=== PATIENT | female | born 1935 | race Caucasian/White ===

== ENCOUNTER → 2019-08-09 08:14 | Outpatient (CLI) | payer MEDICARE, OTHER, SELFPAY ==
[2019-08-09 09:38] LABS: Add Manual Diff / Slide Review NO; Basophils Absolute Auto 100 /uL (0-100); Basophils Percent Auto 1.4 % (0-2); Eosinophils Absolute Auto 100 /uL (0-450); Hematocrit 39.3 % (36-46); Hemoglobin 13.3 g/dL (12.0-16.0); Lymphocytes Absolute Auto 1800 /uL (1100-4500); Lymphocytes Percent Auto 33.8 % (25-40); Mean Corpuscular HGB Conc 33.9 % (30-36); Mean Corpuscular Hemoglobin 31.5 PG (26-34); Monocytes Absolute Auto 400 /uL (0-900); Monocytes Percent Auto 8.2 % (3-14); Neutrophils Absolute Auto 3000 /uL (1500-7000); Neutrophils Percent Auto 55.6 % (50-75); Platelet Count 215 X10^3/uL (150-400); Red Blood Cell Count 4.23 X10^6/uL (4.0-5.2); Red Cell Distribution Width 13.2 % (11.6-14.8); White Blood Cell Count 5.4 X10^3/uL (4.5-11.0)
[2019-08-09 10:08] LABS: Carbon Dioxide 30 mmol/L (22-32); Chloride 100 mmol/L (98-107); HEMOLYSIS < 15 (0-50); Potassium 4.2 mmol/L (3.4-5.1); Sodium 138 mmol/L (137-145)
== END ==
PROVIDERS: PCP Family Medicine; Visit Provider Orthopaedic Surgery
DX: Z01.818 Encounter for other preprocedural examination (principal); Z01.812 Encounter for preprocedural laboratory examination
CPT/HCPCS: 36415; 80051; 85025; 93005

== ENCOUNTER 2019-09-01 14:39 | Observation (INO) | payer MEDICARE, OTHER, SELFPAY ==
[2019-08-22 08:56] VITALS: BMI 21.1
[2019-08-31] VITALS (14 sets, daily range): BP systolic 107–157; BP diastolic 49–80; PULSE 66–81; RESP 10–18; TEMP 36.2–37; O2SAT 92–100; BMI 21.1
--- NOTE | 2019-08-31 06:51 | DI.RAD.S_ITS ---
PROCEDURE: XR KNEE RT 1TO2V INDICATIONS: RIGHT TOTAL KNEE TECHNIQUE: 2 view(s) of the knee acquired. COMPARISON: None. FINDINGS: Bones: Patient is status post knee joint arthroplasty. Hardware components are in expected positions. Visualized bony structures are intact. Soft tissues: Overlying postoperative changes are noted. IMPRESSION: Status post right total knee arthroplasty without hardware complication. Normal postoperative alignment. Dictated by: Pako Dorado M.D. on 08/31/2019 at 10:43 Approved by: Pako Dorado M.D. on 08/31/2019 at 10:43
[2019-08-31] MEDS: CELECOXIB 200 MG CAPSULE PO (07:05)
[2019-08-31] MEDS: ACETAMINOPHEN 325 MG TABLET 975 MG PO ×3 (07:05→21:02)
[2019-08-31] MEDS: PREGABALIN 75 MG CAPSULE PO (07:05)
[2019-08-31] MEDS: LACTATED RINGERS 1,000 ML 42 ML IV ×2 (07:06→09:04)
--- NOTE | 2019-08-31 07:23 | PM.PREOP ---
Pre-operative Note Interval Note History & Physical reviewed/Exam performed by Physician: Yes Changes to H&P: No
--- NOTE | 2019-08-31 07:23 | PM.OP.1 ---
Operative Date/Time/Diagnoses Date of procedure: 08/31/19 Time of procedure: 10:03 Pre-op diagnosis: Right knee osteoarthritis Post-op diagnosis: same Procedure & Clinicians Procedure: Right total knee arthroplasty Same procedure as scheduled: Yes Indications: The patient presents today for total knee arthroplasty after failure of conservative treatment. The nature of the procedure including the risks and benefits, alternatives, postoperative course and expected outcome were discussed and all questions answered. Consent was obtained. Operative site confirmed and marked. Surgeon: Arun Zuleta Crab Picker: Sean Delgado Anesthesia Type: General, Spinal and Local Operative Notes Findings: Severe osteoarthritis with varus alignment. There is a large medial meniscal cyst which was excised. There was also some scarring of the skin medially to the bone from a previous attempt at excising the meniscal cyst. This scarred area was completely excised with primary closure of the skin. Closure Type: primary Specimen(s): none sent Prosthetic devices, grafts, tissues, transplants, or devices: [employer] Mckenzie BCS: 4 femoral component, 3 tibial component, 9 mm BCS polyethylene tray and 32 x 9 mm round patella Applied: implant(s) Estimated Blood Loss (mL): 10 Blood products transfused: none Tourniquet time (min): 68 Procedure in detail: The patient was taken to the operative suite and placed under general and spinal anesthesia. The patient was given prophylactic antibiotics prior to surgery. The patient was also given tranexamic acid, 1 g, just prior to surgery for postoperative hemostasis. The lateral knee was prepped and the joint injected with 20 mL of 1% Lidocaine with epinephrine. The knee was then prepped and draped in usual sterile fashion. The leg was exsanguinated with an Esmarch dressing and the tourniquet raised to 250 torr. A 15 cm anterior incision was made. Next a medial trivector arthrotomy was made. The extensor mechanism was marked to ensure accurate repair. Initial exposing dissection was carried out medially and laterally. There was a large medial meniscal cyst which was debrided. There is also some scarring of the skin to the medial tibia from a previous attempt at removing the cyst. This skin was completely excised to allow primary closure of healthy skin. The knee was then extended and the patellar thickness was measured and a cut made removing approximately 9 mm of bone. The patella was then sized and drilled. Some excess lateral bone was excised and the patellofemoral ligament released. The knee was then flexed and the intramedullary femoral guide yas placed. The distal femoral cut was made in 6 ? of valgus at the +2 position. The femoral size was measured and the appropriate cutting block was then placed and the anterior, posterior and chamfer cuts made. The intramedullary tibial alignment yas was then placed. The guide was set to remove approximately 10 mm from the less affected lateral side. The proximal tibial cut was then made with an oscillating saw. All meniscus and bony debris was then removed. Posterior femoral osteophytes removed with a curved osteotome. Flexion extension gaps were checked. No specific balancing was required other than routine exposure and removal of osteophytes. The soft tissues were then injected with a combination of 20 mL of half percent Marcaine with epinephrine and 20 mL of Exparel. The trial components were then placed. The knee went into full extension and flexion beyond 120?. There was excellent medial-lateral balance throughout motion. Patellar tracking was excellent. The trial components were removed and the knee was cleansed with Pulsavac irrigation and dried. The final components were cemented with high viscosity vacuum mixed bone cement with antibiotics. The joint was filled with a dilute Betadine solution. The knee was held in extension and the patellar clamped until the cement was fully cured. The knee was then irrigated. The extensor mechanism was closed with 5 interrupted #1 Vicryl sutures and a running Quill suture at 90 degrees of flexion. The joint was then injected with a combination of 1 g of tranexamic acid and 20 mL of quarter percent Marcaine with epinephrine. The subcutaneous tissue was closed with 2 0 Vicryl. The skin was closed with angeles and surgical adhesive. An Aquacel dressing and Valeriano wrap were then applied. The patient tolerated the procedure well and was returned to recovery room in good condition. Complications: none Post-operative Condition: stable Disposition: PACU Plan for aftercare: [facility] protocol for total knee arthroplasty.
[2019-08-31] MEDS: CEFAZOLIN 2 GM/100 ML FROZ.PIGGY IV ×2 (08:15→16:01)
[2019-08-31] MEDS: TRANEXAMIC ACID 1,000 MG VIAL 1000 MG INJ (08:20)
[2019-08-31] MEDS: LIDOCAINE 1% W/EPI 20 ML INJ (08:20)
--- NOTE | 2019-08-31 08:45 | SUR.OPER ---
Supine on padded OR bed. Pillow under head, arms secured on padded armboards <90 degree abduction. Safety belt across torso. Non-operative leg secured with tape over blanket over lower leg. Operative leg secured in DeMayo/Miguel positioner. Foam padded brace at thigh of operative leg.
[2019-08-31] MEDS: BUPIVACAINE 0.25% W/ EPI (PF) 40 ML, BUPIVACAINE LIPOSOME 266 MG, SODIUM CHLORIDE 0.9% ... INJ (08:52)
[2019-08-31] MEDS: BUPIVACAINE 0.25% W/ EPI (PF) 20 ML, TRANEXAMIC ACID 1,000 MG, SODIUM CHLORIDE 0.9% 10 ML INJ (08:53)
[2019-08-31] MEDS: SODIUM CHLORIDE IRRIG SOLUTION 250 ML, POVIDONE-IODINE SPONGE STICKS 1 APPLIC IRR (08:54)
--- NOTE | 2019-08-31 10:17 | CM.IDA ---
Addendum entered by VIVIEN Doll 09/01/19 10:42: PT has cleared pt for return home today after cg training w/pt's family, and pt is eager to do so. DC expected today, home w/family and outpt PT, no barriers. CORA Original Note: Initial DCP Assessment Note: Pt is an 84 yo female, resident of [place]. Pt having surgery today, toal rt knee w/Dr Zuleta. PCP: Mindi Flynn Payer: Medicare/[employer] Reviewed chart, pt off floor in surgery today. Will plan to complete assessment POD#1, PT eval pending. VIVIEN Doll Discharge Planning/Care Management CM Discharge Assessment Start: 08/31/19 10:15 Freq: Status: Active Protocol: Document 08/31/19 10:15 CORA (Rec: 08/31/19 10:16 CORA [id number]) Discharge Planning Assessment Assigned Packaging Clerk VIVIEN Scruggs DPOA/Assigned Designee Name Abdoul (brother) Contact Information [phone] Advance Directives? Yes Advance Directives on File No History Provided By Medical Record Prior Living Arrangements House Household Members none Type of transporation used prior to Drives own vehicle admit Independent with ADL's Yes Is patient alert and oriented? Yes Comment 08/27/18. Brother will stay w/pt to assist w/care Discharge Plan Home Transportation Arrangement Family Review Status In Process
[2019-08-31] MEDS: LACTATED RINGERS 1,000 ML 125 ML IV ×2 (11:05→19:59)
--- NOTE | 2019-08-31 12:35 | PC.NURSE ---
Patient resting in bed, transferred from PACU at 1052. Patient is A/Ox4, denies pain at this time, RLE dsg is CDI, pulses are equal and regular in bilateral LE. SCD's on, patient taking sips of water. Request bedpan, urine output 50 ml, tolerated well. Patient's brother at bedside. Call light in reach.
--- NOTE | 2019-08-31 14:37 | PT.IIE ---
Current Diagnoses Unilateral primary osteoarthritis, right knee (08/31/19) Surgery Performed Operation Date: 08/31/19 08:30 Actual Procedures p Total Knee Arthroplasty(Right) - Arun Zuleta MD Surgical History (Last Updated 08/22/19 @ 09:21 by Antonette Simpson, RN) H/O: hysterectomy (Acute) History of incision and drainage (Acute) Hx of appendectomy (Acute) Hx of arthroscopy of left knee (Acute ~2017) Hx of bilateral cataract extraction (Acute) Hx of oophorectomy (Acute) Medical History (Last Updated 08/22/19 @ 09:21 by Antonette Simpson, JANESSA) Hearing impaired (Acute) Numbness and tingling in both hands (Acute) RBBB (right bundle branch block) (Acute) RLS (restless legs syndrome) (Acute) Skin cancer (Acute) Thinning of skin (Acute) Physical Therapy Inpatient Evaluation/Re-Eval M1 PT/OT-IP Prior Functional Status Start: 08/31/19 15:54 Freq: NEEDED Status: Active Protocol: Document 08/31/19 14:37 AB (Rec: 08/31/19 16:05 [id number]) Medical Review Prior Functional Status Medical History Reviewed Yes Communication able to make needs known Mobility and Gait pt stated that she is independent with all mobilities and ambulation without AD Social History Household Members none Living Arrangements House Number of Floors (Floors) Two Floors Number of Stairs To Enter/Railing? 1 step to enter 13 steps with R rail ascending to 2nd floor bedroom; pt stated that she can sleep on her recliner on the main level of the house until she is able to do her 13 steps Home Environment Standard Height Toilet,High Toilet,Tub/Shower Home Equipment Front Wheel Walker,Raised Toilet Seat Without Armrests, Shower Seat without Backrest, Grab Bars In Shower Additional Social History Comment pt's brother plans to stay with pt until Nov 12 to assist her M2 PT-IP Current Condition Start: 08/31/19 15:54 Freq: NEEDED Status: Active Protocol: Document 08/31/19 14:37 AB (Rec: 08/31/19 16:05 AB [id number]) Physical Therapy Current Condition Current Condition Evaluation Date 08/31/19 Treatment Diagnosis s/p R TKA; difficulty in walking Onset Date 08/31/19 Weight Bearing Status Weight Bearing Status Weight Bear as Tolerated M3 PT-IP Subjective Start: 08/31/19 15:54 Freq: NEEDED Status: Active Protocol: Document 08/31/19 14:37 AB (Rec: 08/31/19 16:05 AB [id number]) Subjective Physical Therapy Visit Type Type Initial Evaluation Visit Start Time 14:37 Visit Stop Time 15:37 Total Visit Minutes 60 Number of PHYSICIST SOLID STATE Visits 0 Physical Therapy Visit Comments Patient Comments pt agreeable to do PT Therapy Pain Assessment Pain When Pain Assessed During Mobility Pain Present Pain Present Pain Reported Location right knee Scale Used c/o soreness Pain Management Techniques Apply Cold,Re-positioning M4 PT-IP Mobility and Gait Start: 08/31/19 15:54 Freq: NEEDED Status: Active Protocol: Document 08/31/19 14:37 AB (Rec: 08/31/19 16:05 AB [id number]) PT-Bed Mobility Assessment Supine to Sit Supine to Sit Standby Assistance Scooting Scooting to Edge of Bed Standby Assistance PT-Transfer Assessment Sit to and From Stand Sit to and from Stand Contact Guard Assistance Equipment Transfer Assistive Device Gait Belt,Front Wheeled Walker Orthotic/Prosthetic Devices or Brace: No Transfers Transfer Destination Bed,Chair,Bedside Commode Transfer Technique Stand Step Pivot Transfer Ability Level of Assist Contact Guard Assistance,1 Person Assistance,Use of Upper Extremities Comments Mobility Comments pt can be impulsive and requires cues for safety Gait Assessment Gait Gait Assistance Required: Contact Guard Assist Distance (Feet) 40 Able to Maintain Weight Bearing Status Yes During Gait Assistive Devices Assistive Device Gait Belt,Front Wheeled Walker Orthotic/Prosthetic Devices or Brace: No Gait Deviations General Gait Pattern Antalgic,Decreased Stride Length,Decreased Feet Clearance Factors Limiting Gait Function Factors Limiting Gait Function Decreased Activity Tolerance, Decreased Sensation,Decreased Strength,Difficulty Following Directions,Limited Range of Motion,Pain,Poor Balance,Poor Safety Awareness PT-Balance Assessment Sitting Balance and Reactions Static Sitting Balance Ability Good Dynamic Sitting Balance Ability Good Standing Balance and Reactions Static Standing Balance Ability Fair Dynamic Standing Balance Ability Fair Device Used FWW M5 PT-IP Objective Assessments Start: 08/31/19 15:54 Freq: NEEDED Status: Active Protocol: Document 08/31/19 14:37 AB (Rec: 08/31/19 16:05 AB [id number]) Orientation Orientation/Cognition Level of Alertness Alert Orientation Name,Age,Place,Situation Safety Awareness Decreased Safety Awareness Memory Description Short Term Impaired Gross Range of Motion Lower Extremity ROM Impairments R knee flexion: ~ 90 deg R knee extension: - 5 deg Strength Lower Extremity Strength Hip 4-/5 Knee 4-/5 Sensation Assessment Sensation Gross Sensation Right LE Impaired Light Touch Impaired Sensation Description Numbness Muscle Tone Muscle Tone WNL Yes M6 PT-IP Treatment Start: 08/31/19 15:54 Freq: NEEDED Status: Active Protocol: Document 08/31/19 14:37 AB (Rec: 08/31/19 16:05 [id number]) Physical Therapy Treatment Education Education Provided Precautions,Weight Bearing Status,Post-Op Packet,Safety M7 PT-IP Assessment and Plan Start: 08/31/19 15:54 Freq: NEEDED Status: Active Protocol: Document 08/31/19 14:37 AB (Rec: 08/31/19 16:05 [id number]) PT Summary Assessment and Plan Potential Rehabilitation Potential Good Status of Condition at Evaluation Stable Summary Impairments Pain,ROM,Strength,Balance, Coordination,Sensation, Cognition,Bed Mobility, Transfers,Gait,Activity Tolerance Assessment Summary pt requiring CGA with mobility . pt plans to go home and her brother will be assisting her . caregiver training ~ 10 am tomorrow wiht pt and pt's brother. pt also stated that she is signed up for outpt PT already but has not made an appointment yet. Goals Bed Mobility Goal Independent Transfer Goal Independent,Front Wheeled Walker Gait Goal Independent,Front Wheel Walker Gait Distance 250 Other Goals up/down 1 step using FWW SBA up/down 13 steps R rail ascending CGA Days to Meet Goals 5 Frequency of Treatment Frequency Of Treatment Twice a Day Treatment Plan Physical Therapy Treatment Plan Bed Mobility Training,Transfer Training,Gait Training, Therapeutic Exercise,Balance Retraining,Post Op Education, Discharge Planning,Hot or Cold Pack,Neuromuscular Re-ed, Coordination Retraining,Manual Therapy Other Recommendations and Next Treatment caregiver training 09/01/19 @ [facility] 10 am Recommendations To Nursing Amount of Assist Needed 1 Person Assist Discharge Recommendations PT Discharge Recommendations Home with Assistance, Outpatient PT
[2019-08-31] MEDS: OXYCODONE IR 5 MG TABLET 10 MG PO (18:17)
[2019-08-31] MEDS: ONDANSETRON 4 MG/2 ML INJ IV (21:02)
[2019-08-31] MEDS: ASPIRIN EC 81 MG TABLET PO (21:03)
[2019-08-31] MEDS: ZOLPIDEM 5 MG TABLET 2.5 MG PO (21:03)
[2019-09-01] VITALS: BP 120/56; PULSE 74; RESP 15; TEMP 36.3; O2SAT 96
[2019-09-01] MEDS: CEFAZOLIN 2 GM/100 ML FROZ.PIGGY IV (00:26)
--- NOTE | 2019-09-01 00:37 | PC.NURSE ---
Addendum entered by Pradip Perez R.N. 09/01/19 02:44: 0215: Assisted up to bedside commode, voided. Pt having pain in rt leg when back in bed. Medicated for pain with Oxycodone 10mg po. Original Note: Cancer Registry Manager Note: 0000: Resting in bed. Vital signs stable. IV in place in lt wrist, with LR infusing at 125cc/hr. Rt leg elevated on pillow. Dressing to rt knee cdi, with reese wrap intact over dressing. SCDs on.
[2019-09-01] MEDS: OXYCODONE IR 5 MG TABLET 10 MG PO ×2 (02:13→05:16)
[2019-09-01] MEDS: HYDROMORPHONE 0.5 MG INJ IV (03:34)
[2019-09-01] MEDS: LACTATED RINGERS 1,000 ML 125 ML IV (05:18)
[2019-09-01 05:24] VITALS: BP 138/58; PULSE 73; RESP 16; TEMP 36.1; O2SAT 94
[2019-09-01 07:29] LABS: Hematocrit 35.3 % (36-46); Hemoglobin 11.9 g/dL (12.0-16.0)
[2019-09-01 07:40] VITALS: BP 116/57; PULSE 70; RESP 16; TEMP 36.6; O2SAT 97
[2019-09-01] MEDS: HYDROCODONE/ACET 5/325 TABLET 2 TAB PO ×4 (07:55→20:20)
[2019-09-01] MEDS: ASPIRIN EC 81 MG TABLET PO ×2 (07:57→20:20)
[2019-09-01] MEDS: hydrOXYzine pamoate 25 MG CAPSULE PO ×4 (07:59→20:20)
--- NOTE | 2019-09-01 08:50 | PM.PNPO.1 ---
Subjective Subjective Date Patient Seen: 09/01/19 Time Patient Seen: 08:30 Interval history: Post op day 1 s/p right total knee arthroplasty with Dr. Zuleta. Overnight patient complains of poor pain control with oxycodone 10 and IV dilaudid 0.5. Pain 10/10 in right knee. Given norco and pain dropped to 8/10. Patient ambulating well with physical therapy. Voiding without difficulty or assistance. Complains of nausea, resolved with zofran. Asked nurse overnight to remove SCD's because compression causing her pain. Denies fever, chills, vomiting, chest pain, shortness of breath, calf pain. Exam Vital Signs (past 8 hours): - 09/01/19 05:24 Temperature 97.0 F L Pulse Rate 73 Respiratory Rate 16 Blood Pressure 138/58 L Pulse Oximetry 94 Oxygen Delivery Method Room Air Oxygen Flow Rate 0 Narrative Exam Narrative: 84 year old female is lying comfortably in bed, in no apparent distress. A&Ox3. Dressing is CDI. Patient able to actively plantar flex/dorsiflex. Dorsalis pedis 2+. Capillary refill 3 seconds b/l LE. Sensory function grossly intact to light touch in LE b/l. No SCD's in place. Objective Labs Result Diagrams: 09/01/19 07:08 Labs: Laboratory Results - last 24 hr 09/01/19 07:08 Hgb 11.9 L Hct 35.3 L Assessment & Plan Post-op Postoperative Procedures: Procedures Operation Date: 08/31/19 08:30 Actual Procedures Side Surgeon p Total Knee Arthroplasty Right Arun Zuleta MD Postoperative status: doing well and marginal pain control Postoperative plan narrative: Post op day 1 s/p right total knee arthroplasty with Dr. Zuleta, poor pain control Pain management - IV dilaudid for breakthrough pain, hydrocodone/acetaminophen q4hr Continue ambulation with physical therapy Discharge home likely in 24 hours pending pain management Time Spent With Patient Time with patient: less than 15 minutes Quality VTE Deep Vein Thrombosis/Pulmonary Embolism Present on Admission: No
[2019-09-01] MEDS: ONDANSETRON 4 MG/2 ML INJ IV (09:46)
--- NOTE | 2019-09-01 11:02 | PT.IPTN ---
Current Diagnoses Unilateral primary osteoarthritis, right knee (08/31/19) Surgery Performed Operation Date: 08/31/19 08:30 Actual Procedures p Total Knee Arthroplasty(Right) - Arun Zuleta MD Physical Therapy Treatment Note M2 PT-IP Current Condition Start: 08/31/19 15:54 Freq: NEEDED Status: Active Protocol: Document 08/31/19 14:37 AB (Rec: 08/31/19 16:05 AB [id number]) Physical Therapy Current Condition Current Condition Evaluation Date 08/31/19 Treatment Diagnosis s/p R TKA; difficulty in walking Onset Date 08/31/19 Weight Bearing Status Weight Bearing Status Weight Bear as Tolerated M3 PT-IP Subjective Start: 08/31/19 15:54 Freq: NEEDED Status: Active Protocol: Document 09/01/19 10:45 SP (Rec: 09/01/19 10:56 SP [id number]) Subjective Physical Therapy Visit Type Type Treatment Note Visit Start Time 10:15 Visit Stop Time 10:45 Total Visit Minutes 30 Number of PSYCHOLOGY INSTRUCTOR Visits 1 Physical Therapy Visit Comments Patient Comments pt agreeable to PT to complete caregiver training with transfers, gait, stair mgt but stated in 08/18 pain R knee, just received her pain meds and cold pack. Patient Goals Complete caregiver training and stairs. Therapy Pain Assessment Pain When Pain Assessed At Rest Pain Present Pain Present Pain Reported Location right knee Intensity 10 Pain Management Techniques Apply Cold,Re-positioning, Timing of Activity with Medications M4 PT-IP Mobility and Gait Start: 08/31/19 15:54 Freq: NEEDED Status: Active Protocol: Document 09/01/19 10:45 SP (Rec: 09/01/19 10:56 SP [id number]) PT-Bed Mobility Assessment Rolling Type of Rolling Roll to Left Level of Assist Standby Assistance Supine to Sit Supine to Sit Standby Assistance Sit to Supine Sit to Supine Standby Assistance Scooting Scooting to Edge of Bed Standby Assistance Scooting Up and Down in Bed Standby Assistance PT-Transfer Assessment Sit to and From Stand Sit to and from Stand Contact Guard Assistance Equipment Transfer Assistive Device Gait Belt,Front Wheeled Walker Orthotic/Prosthetic Devices or Brace: No Transfers Transfer Destination Bed Transfer Ability Level of Assist Contact Guard Assistance,1 Person Assistance,Use of Upper Extremities Comments Mobility Comments Pt can be impulsive, required cues for safety including hand placement to stand and sit. Gait Assessment Gait Gait Assistance Required: Contact Guard Assist Distance (Feet) 40 Able to Maintain Weight Bearing Status Yes During Gait Assistive Devices Assistive Device Gait Belt,Front Wheeled Walker Orthotic/Prosthetic Devices or Brace: No Gait Deviations General Gait Pattern Antalgic,Decreased Stride Length,Decreased Feet Clearance,Step-to Gait Factors Limiting Gait Function Factors Limiting Gait Function Decreased Activity Tolerance, Decreased Sensation,Decreased Strength,Difficulty Following Directions,Limited Range of Motion,Pain,Poor Balance,Poor Safety Awareness Stair Climbing Assessment Evaluation Level of Assist On Stairs Contact Guard Assistance Devices Stair Climbing Assistive Devices Right Railing Technique/Endurance Stair Climbing Direction Ascend and Descend Stair Climbing Technique Step to Step Number of Steps Climbed 12 Stair Climbing Set # Repetitions (reps) 1 Comments Stair Climbing Comments Pt education on patterning LLE leading ascending, RLE leading descending, occasional cues for R HR only with good balance. Cued brother for proper positioning (behind ascend/front descend) and contact with GB for safety. M5 PT-IP Objective Assessments Start: 08/31/19 15:54 Freq: NEEDED Status: Active Protocol: Document 08/31/19 14:37 AB (Rec: 08/31/19 16:05 AB [id number]) Orientation Orientation/Cognition Level of Alertness Alert Orientation Name,Age,Place,Situation Safety Awareness Decreased Safety Awareness Memory Description Short Term Impaired Gross Range of Motion Lower Extremity ROM Impairments R knee flexion: ~ 90 deg R knee extension: - 5 deg Strength Lower Extremity Strength Hip 4-/5 Knee 4-/5 Sensation Assessment Sensation Gross Sensation Right LE Impaired Light Touch Impaired Sensation Description Numbness Muscle Tone Muscle Tone WNL Yes M6 PT-IP Treatment Start: 08/31/19 15:54 Freq: NEEDED Status: Active Protocol: Document 09/01/19 10:45 SP (Rec: 09/01/19 10:56 SP [id number]) Physical Therapy Treatment Education Education Provided Precautions,Weight Bearing Status,Post-Op Packet,Safety M7 PT-IP Assessment and Plan Start: 08/31/19 15:54 Freq: NEEDED Status: Active Protocol: Document 09/01/19 10:57 SP (Rec: 09/01/19 11:02 SP [id number]) PT Summary Assessment and Plan Potential Rehabilitation Potential Good Status of Condition at Evaluation Stable Summary Impairments Pain,ROM,Strength,Balance, Coordination,Sensation, Cognition,Bed Mobility, Transfers,Gait,Activity Tolerance Assessment Summary pt requiring CGA with mobility . pt plans to go home and her brother will be assisting her . Caregiver training completed with pt and pt's brother including gait, transfers, stair mgt. Cued occasional cues for staying close and contact with stair mgt for safety, good demonstration, CGA. pt also stated that she is signed up for outpt PT already but has not made an appointment yet. Pt reapplied cold pack for pain control and educated importance for knee positioning neutral and not having knee bent resting all the time to allow full ROM . Pt call light left at side and bed rearmed. Nursing stated already had her meds recently but will keep assessing for assistance. Goals Bed Mobility Goal Independent Transfer Goal Independent,Front Wheeled Walker Gait Goal Independent,Front Wheel Walker Gait Distance 250 Other Goals up/down 1 step using FWW SBA up/down 13 steps R rail ascending CGA Days to Meet Goals 5 Frequency of Treatment Frequency Of Treatment Twice a Day Treatment Plan Physical Therapy Treatment Plan Bed Mobility Training,Transfer Training,Gait Training, Therapeutic Exercise,Balance Retraining,Post Op Education, Discharge Planning,Hot or Cold Pack,Neuromuscular Re-ed, Coordination Retraining,Manual Therapy Other Recommendations and Next Treatment caregiver training 09/01/19 @ [facility] 10 am Recommendations To Nursing Amount of Assist Needed 1 Person Assist Discharge Recommendations PT Discharge Recommendations Home with Assistance, Outpatient PT
[2019-09-01 11:40] VITALS: BP 142/72; PULSE 76; RESP 16; TEMP 37.6; O2SAT 95
--- NOTE | 2019-09-01 14:26 | PC.NURSE ---
Patient had difficulty this morning controlling pain. Discussed staying on top of PRN medications to manage breakthrough pain. Patient is receptive. Reports pain in right knee with movement. Patient is restless overall, trembling noted in LUE, patient reports this happens every once in a while. Patient rejects SCDs at this time. Educated on prevention of clots, patient understands and is willing to put them back on. Patient is currently up to the chair. Denies further needs at this time.
[2019-09-01 15:25] VITALS: BP 137/72; PULSE 78; RESP 18; TEMP 36.8; O2SAT 96
--- NOTE | 2019-09-01 16:55 | PT-IP ANOTE ---
PARA MACHINE OPERATOR went in x2 to see patient in afternoon, laying in bed and reported in 08/18 pain R knee still and has a ice pack to help, can I come back. She was up in the chair 3rd time eating dinner. Pt stated still having pain but the meds are starting to work but am comfortable in the chair. Pt and PARA MACHINE OPERATOR discussed ther ex can perform as HEP. Patient and brother (in room) felt comfortable with the transfers, stairs and did well walking to the bathroom little while ago. Pt asked if was being discharged tomorrow, feels is ready to go home.
[2019-09-01] MEDS: ZOLPIDEM 5 MG TABLET 2.5 MG PO (20:24)
[2019-09-02] MEDS: HYDROCODONE/ACET 5/325 TABLET 2 TAB PO ×2 (01:03→04:28)
[2019-09-02 01:17] VITALS: BP 135/64; PULSE 74; RESP 16; TEMP 36.6; O2SAT 95
[2019-09-02 04:33] VITALS: BP 150/77; PULSE 81; RESP 15; TEMP 36.9; O2SAT 98
[2019-09-02 08:15] VITALS: BP 133/64; PULSE 77; RESP 14; TEMP 36.6; O2SAT 96
[2019-09-02] MEDS: ESTROGENS, CONJUGATED 0.3 MG TABLET PO (08:53)
[2019-09-02] MEDS: ACETAMINOPHEN 325 MG TABLET 975 MG PO (08:53)
[2019-09-02] MEDS: DOCUSATE 100 MG CAPSULE PO (08:53)
[2019-09-02] MEDS: IBUPROFEN 400 MG TABLET PO ×2 (08:54→13:16)
[2019-09-02] MEDS: OXYCODONE IR 5 MG TABLET 10 MG PO ×2 (08:54→12:00)
[2019-09-02] MEDS: ASPIRIN EC 81 MG TABLET PO (08:55)
--- NOTE | 2019-09-02 09:34 | PT.IPTN ---
Current Diagnoses Unilateral primary osteoarthritis, right knee (08/31/19) Surgery Performed Operation Date: 08/31/19 08:30 Actual Procedures p Total Knee Arthroplasty(Right) - Arun Zuleta MD Physical Therapy Treatment Note M2 PT-IP Current Condition Start: 08/31/19 15:54 Freq: NEEDED Status: Active Protocol: Document 08/31/19 14:37 AB (Rec: 08/31/19 16:05 AB [id number]) Physical Therapy Current Condition Current Condition Evaluation Date 08/31/19 Treatment Diagnosis s/p R TKA; difficulty in walking Onset Date 08/31/19 Weight Bearing Status Weight Bearing Status Weight Bear as Tolerated M3 PT-IP Subjective Start: 08/31/19 15:54 Freq: NEEDED Status: Active Protocol: Document 09/02/19 09:34 SP (Rec: 09/02/19 09:52 SP [id number]) Subjective Physical Therapy Visit Type Type Treatment Note Visit Start Time 09:00 Visit Stop Time 09:34 Total Visit Minutes 34 Number of GAUGER CHIEF Visits 2 Physical Therapy Visit Comments Patient Comments Pt agreeable to PT today. Pt stated just recently got her pain meds and pain still hasn' t improved, knee very stiff elevated in chair. Patient Goals Wants to move more. Therapy Pain Assessment Pain When Pain Assessed At Rest Pain Present Pain Present Pain Reported Location right knee Intensity 10 Pain Management Techniques Re-positioning,Timing of Activity with Medications M4 PT-IP Mobility and Gait Start: 08/31/19 15:54 Freq: NEEDED Status: Active Protocol: Document 09/02/19 09:34 SP (Rec: 09/02/19 09:52 SP [id number]) PT-Transfer Assessment Sit to and From Stand Sit to and from Stand Contact Guard Assistance Equipment Transfer Assistive Device Gait Belt,Front Wheeled Walker Orthotic/Prosthetic Devices or Brace: No Transfers Transfer Destination Chair Transfer Technique Stand Step Pivot Transfer Ability Level of Assist Contact Guard Assistance,Use of Upper Extremities Comments Mobility Comments Decreased impulsivity today, good hand placement, positions RLE out in front during transfer. Gait Assessment Gait Gait Assistance Required: Contact Guard Assist Distance (Feet) 100 Able to Maintain Weight Bearing Status Yes During Gait Assistive Devices Assistive Device Gait Belt,Front Wheeled Walker Orthotic/Prosthetic Devices or Brace: No Gait Deviations General Gait Pattern Antalgic,Decreased Stride Length,Decreased Feet Clearance,Step-to Gait Factors Limiting Gait Function Factors Limiting Gait Function Decreased Activity Tolerance, Decreased Sensation,Decreased Strength,Difficulty Following Directions,Limited Range of Motion,Pain,Poor Balance,Poor Safety Awareness Comments Gait Comments Pt BUE WB heavily on FWW, cued for increased stride length, LLE passes RLE at mid foot, improving, upright posture. Cued brother CGA during gait and transfers for safety. Stair Climbing Assessment Comments Stair Climbing Comments Pt and brother stated 2 step carport to in house no rail but longer distance to front door with one step but can use FWW for support. Trial 1 step with FWW in afternoon. PT-Balance Assessment Sitting Balance and Reactions Static Sitting Balance Ability Good Dynamic Sitting Balance Ability Good Standing Balance and Reactions Static Standing Balance Ability Fair Dynamic Standing Balance Ability Fair Device Used FWW M5 PT-IP Objective Assessments Start: 08/31/19 15:54 Freq: NEEDED Status: Active Protocol: Document 08/31/19 14:37 AB (Rec: 08/31/19 16:05 AB [id number]) Orientation Orientation/Cognition Level of Alertness Alert Orientation Name,Age,Place,Situation Safety Awareness Decreased Safety Awareness Memory Description Short Term Impaired Gross Range of Motion Lower Extremity ROM Impairments R knee flexion: ~ 90 deg R knee extension: - 5 deg Strength Lower Extremity Strength Hip 4-/5 Knee 4-/5 Sensation Assessment Sensation Gross Sensation Right LE Impaired Light Touch Impaired Sensation Description Numbness Muscle Tone Muscle Tone WNL Yes M6 PT-IP Treatment Start: 08/31/19 15:54 Freq: NEEDED Status: Active Protocol: Document 09/02/19 09:34 SP (Rec: 09/02/19 09:52 SP [id number]) Physical Therapy Treatment Exercises Exercises Ankle Pumps,Gluteal Sets, Seated Knee Flexion/Extension Knee ROM Measurement approx 70* flexion M7 PT-IP Assessment and Plan Start: 08/31/19 15:54 Freq: NEEDED Status: Active Protocol: Document 09/02/19 09:34 SP (Rec: 09/02/19 09:52 SP [id number]) PT Summary Assessment and Plan Potential Rehabilitation Potential Good Status of Condition at Evaluation Stable Summary Impairments Pain,ROM,Strength,Balance, Coordination,Sensation, Cognition,Bed Mobility, Transfers,Gait,Activity Tolerance Assessment Summary pt requiring CGA with mobility . pt plans to go home and her brother will be assisting her . Caregiver training during gait with brother, cued for CGA and stop rests if needded for endurance and safety. BUE heavily WB on onFWW during gait. Pt reported able to move more durign gait and pain decreased 06/18. Encouraged patient to perform exercises between PT for assist ROM and decreased stiffness reported. Recommed 1 [address] stair with FWW to assess front door mgt when get home. Able to complete 12 stairs yesterday with R HR (noted has inside home) with brother. Pt was up in chair with knee bent for assist ROM, call light at side and brother in room. Goals Bed Mobility Goal Independent Transfer Goal Independent,Front Wheeled Walker Gait Goal Independent,Front Wheel Walker Gait Distance 250 Other Goals up/down 1 step using FWW SBA up/down 13 steps R rail ascending CGA Days to Meet Goals 5 Frequency of Treatment Frequency Of Treatment Twice a Day Treatment Plan Physical Therapy Treatment Plan Bed Mobility Training,Transfer Training,Gait Training, Therapeutic Exercise,Balance Retraining,Post Op Education, Discharge Planning,Hot or Cold Pack,Neuromuscular Re-ed, Coordination Retraining,Manual Therapy Other Recommendations and Next Treatment caregiver training 09/01/19 @ [facility] 10 am Recommendations To Nursing Amount of Assist Needed 1 Person Assist Discharge Recommendations PT Discharge Recommendations Home with Assistance, Outpatient PT
--- NOTE | 2019-09-02 14:23 | PT.IPTN ---
Current Diagnoses Unilateral primary osteoarthritis, right knee (08/31/19) Surgery Performed Operation Date: 08/31/19 08:30 Actual Procedures p Total Knee Arthroplasty(Right) - Arun Zuleta MD Physical Therapy Treatment Note M2 PT-IP Current Condition Start: 08/31/19 15:54 Freq: NEEDED Status: Active Protocol: Document 08/31/19 14:37 AB (Rec: 08/31/19 16:05 AB [id number]) Physical Therapy Current Condition Current Condition Evaluation Date 08/31/19 Treatment Diagnosis s/p R TKA; difficulty in walking Onset Date 08/31/19 Weight Bearing Status Weight Bearing Status Weight Bear as Tolerated M3 PT-IP Subjective Start: 08/31/19 15:54 Freq: NEEDED Status: Active Protocol: Document 09/02/19 14:17 GGD (Rec: 09/02/19 14:23 GGD [id number]) Subjective Physical Therapy Visit Type Type Treatment Note Visit Start Time 13:57 Visit Stop Time 14:15 Total Visit Minutes 23 Number of LEAD PROJECT MANAGER Visits 3 Physical Therapy Visit Comments Patient Comments Pt states she feels ready to go home. M4 PT-IP Mobility and Gait Start: 08/31/19 15:54 Freq: NEEDED Status: Active Protocol: Document 09/02/19 14:17 GGD (Rec: 09/02/19 14:23 GGD [id number]) Gait Assessment Gait Gait Assistance Required: Contact Guard Assist Distance (Feet) 80 Able to Maintain Weight Bearing Status Yes During Gait Assistive Devices Assistive Device Gait Belt,Front Wheeled Walker Orthotic/Prosthetic Devices or Brace: No Gait Deviations General Gait Pattern Antalgic,Decreased Stride Length,Decreased Feet Clearance,Step-to Gait Factors Limiting Gait Function Factors Limiting Gait Function Decreased Activity Tolerance, Decreased Sensation,Decreased Strength,Difficulty Following Directions,Limited Range of Motion,Pain,Poor Balance,Poor Safety Awareness Stair Climbing Assessment Evaluation Level of Assist On Stairs Standby Assistance,Contact Guard Assistance Devices Stair Climbing Assistive Devices Front Wheel Walker,Right Railing Technique/Endurance Stair Climbing Direction Ascend and Descend Stair Climbing Technique Step to Step Number of Steps Climbed 3 Stair Climbing Set # Repetitions (reps) 2 Comments Stair Climbing Comments Pt ambulated 3 steps with right raill with CGA to SBA. Pt ambulated 1 step 4 times with CGA. M5 PT-IP Objective Assessments Start: 08/31/19 15:54 Freq: NEEDED Status: Active Protocol: Document 08/31/19 14:37 AB (Rec: 08/31/19 16:05 AB [id number]) Orientation Orientation/Cognition Level of Alertness Alert Orientation Name,Age,Place,Situation Safety Awareness Decreased Safety Awareness Memory Description Short Term Impaired Gross Range of Motion Lower Extremity ROM Impairments R knee flexion: ~ 90 deg R knee extension: - 5 deg Strength Lower Extremity Strength Hip 4-/5 Knee 4-/5 Sensation Assessment Sensation Gross Sensation Right LE Impaired Light Touch Impaired Sensation Description Numbness Muscle Tone Muscle Tone WNL Yes M6 PT-IP Treatment Start: 08/31/19 15:54 Freq: NEEDED Status: Active Protocol: Document 09/02/19 14:17 GGD (Rec: 09/02/19 14:23 GGD [id number]) Physical Therapy Treatment Exercises Exercises Ankle Pumps,Short Arc Quads, Seated Knee Flexion/Extension M7 PT-IP Assessment and Plan Start: 08/31/19 15:54 Freq: NEEDED Status: Active Protocol: Document 09/02/19 14:17 GGD (Rec: 09/02/19 14:23 GGD [id number]) PT Summary Assessment and Plan Summary Assessment Summary Pt improving with mobility. Pt need cues for stair mobility. Pt improved tolerance to weight bearing. Frequency of Treatment Frequency Of Treatment Twice a Day Treatment Plan Physical Therapy Treatment Plan Bed Mobility Training,Transfer Training,Gait Training, Therapeutic Exercise,Balance Retraining,Post Op Education, Discharge Planning,Hot or Cold Pack,Neuromuscular Re-ed, Coordination Retraining,Manual Therapy Recommendations To Nursing Amount of Assist Needed 1 Person Assist Discharge Recommendations PT Discharge Recommendations Home with Assistance, Outpatient PT
--- NOTE | 2019-09-02 14:43 | PC.NURSE ---
Addendum entered by Leslie Mercado R.N. 09/02/19 14:46: LATE ENTRY: OLD DRSG WAS 70% SATURATED. CHANGED DRSG WITH ORTHO LUCAS TAPIA AT BEDSIDE. NO EVIDENCE OF ACTIVE OOZING FROM INCISION WHICH IS WELL APPROXIMATED WITH VICTOR MANUEL INTACT. APPLIED NEW AQUACEL DRSG. PATIENT TOLERATED WELL. Original Note: DISCHARGE: PATIENT HAD PAIN CONTROL ISSUES THIS AM. BY THIS AFTERNOON PAIN WAS WELL CONTROLLED ON REGIMEN OF SCHEDULED TYLENOL, IBUPROFEN AND OXYCODONE. PATIENT DID WELL WITH PHYSICAL THERAPY, VERY MOTIVATED. CLEARED FOR DC HOME. SCRIPTS REVIEWED W/PATIENT AND HER BROTHER WHO WILL BE TAKING CARE OF HER AT HOME. REVIEWED ALL DC PAPERWORK. PATIENT CONFIRMS UNDERSTANDING. ESCORTED TO VEHICLE BY WC.
== END 2019-09-02 14:20 | disposition home or self-care (01) ==
LOC: AC 09-02 13:49 → OR 09-02 15:18 → AC 09-02 15:41
PROVIDERS: Admitting Provider Orthopaedic Surgery; PCP Family Medicine; Visit Provider Orthopaedic Surgery
PROC: 0SRC0JZ Replacement of Right Knee Joint with Synthetic Substitute, Open Approach (ICD-10-PCS; CPT 27447; principal; 2019-08-31 08:30)
DX: M17.11 Unilateral primary osteoarthritis, right knee (principal); M23.003 Cystic meniscus, unspecified medial meniscus, right knee
CPT/HCPCS: 27447; 36415; 73560; 85014; 85018; 94762; 97110; 97116; 97161; 97530; C1776; G0378; C9290; J0690; J1100; J1170; J2250; J2274; J2405; J2704; J3010